=== PATIENT | male | born 1995 | race Caucasian/White ===

== ENCOUNTER 2017-03-08 11:11 | Emergency (ER) | payer MEDICAID ==
[~2017-03-08] VITALS: Ht 172.7 cm; Wt 72.1 kg
[2017-03-08 12:23] LABS: BASOPHIL % 0.4 % (0-2); PLATELET COUNT 271 x10^3mcL (130-400); RED CELL DISTRIBUTION WIDTH 14.2 % (11.5-14.5)
[2017-03-08 12:27] LABS: CALCIUM 9.2 mg/dL (8.5-10.1); CHLORIDE SERUM 106 mmol/L (98-107); CREATININE SERUM 0.9 mg/dL (0.7-1.3); GFR1 > 60 mL/min; GLUCOSE SERUM 86 mg/dL (74-106); POTASSIUM SERUM 3.6 mmol/L (3.5-5.1); SODIUM SERUM 144 mmol/L (136-145)
[2017-03-08 12:36] LABS: ALBUMIN 4.1 g/dL (3.4-5.0); ALKALINE PHOSPHATASE 130 U/L (46-116); ALT/SGPT 39 U/L (16-63); AST/SGOT 21 U/L (15-37); BILIRUBIN TOTAL 0.57 mg/dL (0.20-1.00)
[2017-03-08 12:37] LABS: TOTAL PROTEIN, SERUM 8.3 g/dL (6.4-8.2)
[2017-03-08 14:17] VITALS: BP 106/67
== END 2017-03-08 14:10 | disposition left against medical advice (07) ==
LOC: ED 11:11
PROVIDERS: Emergency Medicine
DX: I31.9 Disease of pericardium, unspecified (principal); J45.909 Unspecified asthma, uncomplicated
CPT/HCPCS: J1885; J7030

== ENCOUNTER 2018-08-27 18:10 | Emergency (ER) | payer OTHER ==
[~2018-08-27] VITALS: Ht 172.7 cm; Wt 62.6 kg
[2018-08-27 18:57] VITALS: BP 127/101; Ht 172.7 cm; Wt 62.6 kg
== END 2018-08-27 21:13 | disposition left against medical advice (07) ==
LOC: ED 18:10
DX: Z53.21 Procedure and treatment not carried out due to patient leaving prior to being seen by health care provider (principal)